=== PATIENT | female | born 1995 | race Caucasian/White ===

== ENCOUNTER 2018-11-30 10:21 | Emergency (ER) | payer OTHER ==
[~2018-11-30] VITALS: Ht 152.4 cm; Wt 65.8 kg
[2018-11-30 10:23] VITALS: BP 114/81
--- NOTE | 2018-11-30 10:29 | NUR ---
Patient ambulated to bed 5. RN evaluating patient at bedside.
--- NOTE | 2018-11-30 10:35 | NUR ---
Pt c/o cough with greenish sputum and runny nose x 11 days; pain on right lower ribs area while coughing. Pt also c/o of nausea for one week. DENIES V/D; SKIN IS PINK/WARM/DRY; AAOX4 WITH EVEN AND STEADY GAIT; LUNGS CLEAR BL; PT DENIES ANY FEVER, CP, OR SOB AT THIS TIME; PATIENT STATES PAIN ON RIGHT LOWER RIBS AREA WHILE COUGHING OF 8/10 AT THIS TIME; VSS; PATIENT POSITIONED FOR COMFORT; HOB ELEVATED; BEDRAILS UP X2; BED DOWN. ER MD MADE AWARE OF PT STATUS.
[2018-11-30] MEDS ORDERED: cefTRIAXone 1,000 MG in LIDOCAINE 1% ***ER ONLY *** 2.1 ML IM ONE (10:45)
[2018-11-30] MEDS ORDERED: ALBUTEROL SULFATE/IPRATROPIU 3 ML SOL IH ONE (10:45)
[2018-11-30] MEDS ORDERED: DEXAMETHASONE 10 MG/ML VIAL IM ONE (10:45)
[2018-11-30] MEDS ORDERED: hydrOXYzine HCL 25 MG TAB PO ONE (10:45)
--- NOTE | 2018-11-30 10:58 | NUR ---
ADMITTING DX: COLD SYMPTOMS HX: ASTHMA C/O SLIGHT SOB AT THIS TIME EDUCATION PROVIDED WITH ACKNOWLEDGEMENT ON [facility] THERAPY AND RESPIRATORY DRUG FOREMENTIONED GIVEN ORDERED ENCOURAGED PATIENT FOR INTERMITTENT DEEP BREATHING DURING THERAPY
--- NOTE | 2018-11-30 11:00 | NUR ---
Pt is unable to have urine. Water provided to bedside.
--- NOTE | 2018-11-30 11:07 | NUR ---
Pt states there is no possibility that she can be . She wants to do X-Ray without Urine test result.
[2018-11-30] MEDS ORDERED: LIDOCAINE MPF 1% - 5 mL VIAL 5 ML ONE (11:24)
[2018-11-30] MEDS ORDERED: cefTRIAXone 1,000 MG VIAL ONE (11:24)
--- NOTE | 2018-11-30 11:43 | NUR ---
NOTIFIED PT STILL COULD NOT PROVIDE URINE SAMPLE EVEN AFTER A NUMBER OF CUPS FULL OF WATER WERE PROVIDED FOR PT. OKAYED TO GIVE ROCEPHIN IM PRIOR TO URINE SAMPLE PT REFUSED IM ALTHOUGH IT WAS PREPARED AND READY FOR HER. PT REQUESTED RX AND STATED, I AM NOT GETTING BETTER HERE SO I RATHER GO"! PT TO WAIT IN ER LOBBY FOR RX UPON HANDING RX AND DC INSTRUCTIONS TO PT, SHE REQUESTED TO SPEAK WITH MD. PT SEATED IN TRIAGE FOR PRIVACY AWARE
[2018-11-30 11:48] VITALS: BP 114/81
--- NOTE | 2018-11-30 11:49 | NUR ---
DC BY Patient discharged with v/s stable. Written and verbal after care instructions given and explained. Patient alert, oriented and verbalized understanding of instructions. Ambulatory with steady gait. All questions addressed prior to discharge. ID band removed. Patient advised to follow up with PMD. Rx of AZITHROMYCIN/ ALBUTEROL/ PREDNISONE given. Patient educated on indication of medication including possible reaction and side effects. Opportunity to ask questions provided and answered.
== END 2018-11-30 11:50 | disposition home or self-care (01) ==
LOC: MED 10:21
DX: R05 Cough (principal); R09.81 Nasal congestion; R21 Rash and other nonspecific skin eruption; R09.89 Other specified symptoms and signs involving the circulatory and respiratory systems; R06.2 Wheezing; Z87.891 Personal history of nicotine dependence
CPT/HCPCS: 71045; 94640; 96372; 99283; J1100; J7030; J7620; Q0092; J0696; J2001